=== PATIENT | female | born 1995 | race Asian ===

== ENCOUNTER 2024-05-06 08:11 | Day surgery (SDC) | payer OTHER ==
[~2024-05-06] VITALS: Ht 152.4 cm; Wt 46.3 kg
[2024-05-06 09:34] LABS: HCG,QUAL RESULT NEGATIVE (NEGATIVE)
[2024-05-06] MEDS ORDERED: MIDAZOLAM HCL 5 MG/5 ML VIAL ONE (11:23)
[2024-05-06] MEDS ORDERED: MEPERIDINE 100 MG INJ. 100 MG/ML VIAL ONE (11:24)
[2024-05-06 15:23] VITALS: BP_SYST 116; PULSE 68; RESP 17; TEMP 98.3; O2SAT 100
== END 2024-05-06 12:45 | disposition home or self-care (01) ==
LOC: SDS 08:11 → SMU 08:12 → SDS 12:45
PROVIDERS: ATTEND Internal Medicine Gastroenterology
DX: R10.9 Unspecified abdominal pain (principal); K29.50 Unspecified chronic gastritis without bleeding; R10.13 Epigastric pain; K21.9 Gastro-esophageal reflux disease without esophagitis; R19.4 Change in bowel habit; J45.909 Unspecified asthma, uncomplicated; Z79.899 Other long term (current) drug therapy
CPT/HCPCS: 84703; 43239; 88305; 88312; 88313; 99152; G0378; J2250; J2175